=== PATIENT | male | born 1950 | race Caucasian/White ===

== ENCOUNTER 2018-12-26 09:34 | Day surgery (SDC) | payer MEDICARE ==
[~2018-12-26] VITALS: Ht 188 cm; Wt 79.0 kg
[2018-12-26] VITALS (10 sets, daily range): BP systolic 128–165; BP diastolic 42–85
[2018-12-26] MEDS ORDERED: normal saline 1,000 ML IV SCH (09:45)
[2018-12-26] MEDS ORDERED: diphenhydrAMINE 25mg capsule PO PRN (09:45)
[2018-12-26] MEDS ORDERED: CLOP75TA15 PO (09:59)
[2018-12-26] MEDS ORDERED: ATOR40TA PO (09:59)
[2018-12-26] MEDS ORDERED: FLO0.4C PO (09:59)
[2018-12-26] MEDS ORDERED: NITR0.4T48 SL (09:59)
[2018-12-26] MEDS ORDERED: METO50TA7 PO (09:59)
[2018-12-26] MEDS ORDERED: ZOLP10TA5 PO (09:59)
[2018-12-26] MEDS ORDERED: HYDR-3972 PO (09:59)
[2018-12-26 10:25] LABS: ALBUMIN 3.6 G/DL (3.4-5.0); ANION GAP 7 (8-16); BASOPHILS # (AUTO) 0.1 X10'3 (0-0.2); BASOPHILS % (AUTO) 1.4 % (0-1); BLOOD UREA NITROGEN 16 MG/DL (7-18); BUN/CREATININE RATIO 15.5 (5.4-32.0); CALCIUM 8.8 MG/DL (8.5-10.1); CHLORIDE 106 MMOL/L (99-107); CREATININE 1.03 MG/DL (0.60-1.10); EOSINOPHILS # (AUTO) 0.1 X10'3 (0-0.9); EOSINOPHILS % (AUTO) 3.8 % (0-6); GLUCOSE 88 MG/DL (70-104); HEMATOCRIT 38.3 % (42.0-52.0); LYMPHOCYTES # (AUTO) 0.9 X10'3 (1.1-4.8); LYMPHOCYTES % (AUTO) 23.3 % (21-51); MAGNESIUM 2.1 MG/DL (1.5-2.4); MEAN CORPUSCULAR HEMOGLOBIN 32.7 PG (27.0-31.0); MEAN CORPUSCULAR VOLUME 96.2 FL (78-98); MEAN PLATELET VOLUME 9.2 FL (7.4-10.4); MONOCYTES # (AUTO) 0.5 X10'3 (0-0.9); MONOCYTES % (AUTO) 13.3 % (2-12); NEUTROPHILS # (AUTO) 2.2 X10'3 (1.8-7.7); NEUTROPHILS % (AUTO) 58.2 % (42-75); PLATELET COUNT 174 X10'3 (140-440); RED BLOOD COUNT 3.98 X10'6 (4.70-6.10); RED CELL DISTRIBUTION WIDTH 13.8 % (11.5-14.5); SODIUM 140 MMOL/L (135-145); TOTAL CARBON DIOXIDE 27.3 MMOL/L (24-32); WHITE BLOOD COUNT 3.8 X10'3 (4.5-11.0); eGFR 72 ML/MIN
[2018-12-26 10:29] LABS: POTASSIUM 4.5 MMOL/L (3.5-5.1)
[2018-12-26] MEDS ORDERED: LIDOcaine 1% (10mg/ml)w/preservative injection 20ml MDV ONE (10:41)
[2018-12-26] MEDS ORDERED: midazolam 2 mg/2 ml injection ONE ×2 (10:41→11:24)
[2018-12-26] MEDS ORDERED: fentaNYL/PF 50MCG/1 ML 2ML syringe ONE (10:41)
[2018-12-26] MEDS ORDERED: iohexol 350MG/ML 100ml bottle IV ONE (10:42)
[2018-12-26] MEDS ORDERED: iohexol 350 MG/ML 50ML vial IV ONE (10:42)
[2018-12-26] MEDS ORDERED: proCHLORperazine 10 MG/2 ml inj ONE (11:24)
[2018-12-26] MEDS ORDERED: HYDROcodone/acetaminophen 5mg/325mg tablet PO PRN (12:25)
[2018-12-26] MEDS ORDERED: HYDROcodone/acetaminophen 10/325mg tab PO PRN (12:25)
== END 2018-12-26 15:45 | disposition home or self-care (01) ==
LOC: SSTAY O 09:34
PROVIDERS: ATTEND Internal Medicine Cardiovascular Disease
DX: R07.9 Chest pain, unspecified (principal); N40.0 Benign prostatic hyperplasia without lower urinary tract symptoms; G47.33 Obstructive sleep apnea (adult) (pediatric); Z87.891 Personal history of nicotine dependence; F12.90 Cannabis use, unspecified, uncomplicated; Z79.899 Other long term (current) drug therapy; Z82.49 Family history of ischemic heart disease and other diseases of the circulatory system; Z85.46 Personal history of malignant neoplasm of prostate
CPT/HCPCS: 36415; 80048; 83735; 85025; 85610; 93005; 93458; 99152; 99153; C1769; C1894; J0780; J1644; J2001; J2250; J3010; J7030; Q0163; Q9967; A4620; A6258; C1760